=== PATIENT | male | born 1945 | race Caucasian/White ===

== ENCOUNTER 2019-06-26 08:42 | Outpatient (CLI) | payer MEDICARE, OTHER ==
[2019-06-26 09:02] LABS: BASOPHILS 0.4 % (0-2); EOSINOPHILS 4.6 % (0-7); HEMATOCRIT 48.4 % (42.0-54.0); HEMOGLOBIN 17.2 g/dL (13.5-17.5); IMMATURE GRANULOCYTES 0.4 % (0-5); LYMPHOCYTES 34.1 % (15-50); MCH 33.5 pg (26.0-34.0); MCHC 35.5 g/dL (31.0-37.0); MCV 94.2 fL (80.0-100.0); MEAN PLATELET VOLUME 12.2 fL (7.4-10.4); MONOCYTES 11.4 % (2-11); NEUTROPHILS 49.1 % (40-80); PLATELET COUNT 118 10x3/uL (130-400); RBC 5.14 10x6/uL (4.20-6.10); RDW 12.9 % (11.5-14.5); WBC 5.5 10x3/uL (4.8-10.8)
[2019-06-26 09:10] LABS: ANION GAP 9.7 mmol/L (8-16); CALCIUM 9.1 mg/dL (8.5-10.1); CARBON DIOXIDE 35.4 mmol/L (21.0-32.0); CREATININE - SERUM 1.1 mg/dL (0.6-1.3); POTASSIUM - SERUM 4.1 mmol/L (3.5-5.1)
[2019-06-26 09:11] LABS: INR 1.04 (0.85-1.17); PROTIME 13.1 SECONDS (11.6-15.0)
[2019-06-26] MEDS ORDERED: LOVASTATIN40 MG PO ×2 (11:12)
[2019-06-26] MEDS ORDERED: COZAAR50 MG (11:13)
[2019-06-26] MEDS ORDERED: HYDROCHLOROTH12.5 M1 PO (11:13)
[2019-06-26] MEDS ORDERED: NORVASC10 MG PO (11:14)
[2019-06-26] MEDS ORDERED: OMEPRAZOLE20 M1 PO (11:15)
[2019-06-26] MEDS ORDERED: BAYER CHEWABLE81 MG PO (11:15)
[2019-06-26] MEDS ORDERED: FISH OIL 1,0001 CA1 PO (11:16)
[2019-06-26] MEDS ORDERED: PRESERVISION (11:16)
--- NOTE | 2019-06-26 12:07 | NUR ---
CT DOWN. UNABLE TO DO PROCEDURE. IV REMOVED WITH CATHALON INTACT. DC'D HOME.
[2019-06-30 10:09] VITALS: BMI 28.3
== END 2019-06-26 11:30 | disposition home or self-care (01) ==
LOC: D.SP 08:42 → D.CT 11:00 → D.SP 11:30
PROVIDERS: Specialist; ATTEND Nurse Practitioner Family
DX: R91.8 Other nonspecific abnormal finding of lung field (principal); Z53.9 Procedure and treatment not carried out, unspecified reason

== ENCOUNTER 2019-06-30 06:00 | Inpatient (IN) | payer MEDICARE, OTHER ==
[~2019-06-30] VITALS: Ht 180.3 cm; Wt 92.3 kg
[~2019-06-30 06:00] MED LIST: BAYER CHEWABLE81 MG PO; COZAAR50 MG; FISH OIL 1,0001 CA1 PO; HYDROCHLOROTH12.5 M1 PO; LOVASTATIN40 MG PO; NORVASC10 MG PO; OMEPRAZOLE20 M1 PO; PRESERVISION
[2019-06-30 06:35] LABS: BASOPHILS 0.4 % (0-2); EOSINOPHILS 4.7 % (0-7); HEMATOCRIT 47.1 % (42.0-54.0); HEMOGLOBIN 16.5 g/dL (13.5-17.5); IMMATURE GRANULOCYTES 0.2 % (0-5); LYMPHOCYTES 30.3 % (15-50); MCH 32.6 pg (26.0-34.0); MCV 93.1 fL (80.0-100.0); MEAN PLATELET VOLUME 12.3 fL (7.4-10.4); MONOCYTES 8.6 % (2-11); NEUTROPHILS 55.8 % (40-80); PLATELET COUNT 120 10x3/uL (130-400); RBC 5.06 10x6/uL (4.20-6.10); RDW 12.8 % (11.5-14.5); WBC 4.9 10x3/uL (4.8-10.8)
[2019-06-30 06:38] LABS: INR 1.06 (0.85-1.17); PROTIME 13.3 SECONDS (11.6-15.0)
[2019-06-30 06:45] LABS: ANION GAP 10.2 mmol/L (8-16); CARBON DIOXIDE 32.6 mmol/L (21.0-32.0); CREATININE - SERUM 1.1 mg/dL (0.6-1.3); POTASSIUM - SERUM 3.8 mmol/L (3.5-5.1)
[2019-06-30] MEDS ORDERED: LIPITOR20 MG PO (06:54)
[2019-06-30 07:03] VITALS: BMI 28.3
--- NOTE | 2019-06-30 09:45 | NUR ---
RECEIVED TO ROOM 2236 VIA BED FROM IR. A/O X3. FAMILY AT BEDSIDE. CHEST TUBE TO LEFT CHEST IS PATENT. SET UP TO SUCTION. DENIES NEEDS.
--- NOTE | 2019-06-30 09:55 | NUR ---
REQUESTED AND GIVEN 4MG MORPHINE SLOW IVP FOR C/O PAIN TO LEFT CHEST LEVEL 8. WILL MONITOR. BREAKFAST TRAY ORDERED. FAMILY IN ROOM. NO NEEDS NOTED.
[2019-06-30 10:09] VITALS: BP 133/72; Ht 180.3 cm; Wt 92.3 kg
--- NOTE | 2019-06-30 10:45 | NUR ---
BREAKFAST TRAY SERVED IN ROOM. ATE ALL OF MEAL. REPORTS VERY LITTLE RELLIEF WITH USE OF MORPHINE.
--- NOTE | 2019-06-30 12:18 | NUR ---
RESTING QUIETLY IN BED. DENIES NEEDS.
--- NOTE | 2019-06-30 13:54 | NUR ---
REQUESTED AND GIVNE ONE HYDROCODONE PO FOR C/O LEFT CHEST PAIN. WILL MONITOR.
[2019-06-30 16:20] VITALS: BP 122/56
--- NOTE | 2019-06-30 18:20 | NUR ---
REQUESTED AND GIVNE 6MG MORPHINE SLOW IVP FOR C/O LEFT CHEST PAIN LEVEL 8. WILL MONITOR. DENIES NEEDS. NO CHANGES NOTED.
[2019-06-30 22:21] VITALS: BP 130/75
[2019-07-01 01:50] VITALS: BP 122/65
--- NOTE | 2019-07-01 04:00 | NUR ---
I have reviewed this patient and I concur with the Shift Assessment completed by the Licensed Practical Nurse today this shift.
[2019-07-01 04:58] VITALS: BP 134/60
--- NOTE | 2019-07-01 08:04 | NUR ---
ALERT AND ORIENTED. LUNGS CLEAR BILATERALLY. HEART SOUNDS S1 AND S2 HEARD IN ALL LOPE[place]. BOWEL SOUNDS ACTIVE X 4. STATES NO BM SINCE YESTERDAY. WILL CONTINUE TO MONITOR. CHEST TUBE TO LEFT SIDE. DENIES NEEDS. BED LOW. CALL RODRIGUEZ AND PERSONAL ITEMS IN REACH. WILL CONTINUE TO MONITOR.
[2019-07-01 09:03] VITALS: BP 128/74
--- NOTE | 2019-07-01 10:08 | NUR ---
SITTING IN BED EATING BREAKFAST BROUGHT. AT BEDSIDE. DENIES NEEDS. WILL CONTINUE TO MONITOR.
[2019-07-01 12:56] VITALS: BP 122/74
--- NOTE | 2019-07-01 15:02 | MORECARE ---
CASE MANAGEMENT DISCHARGE SUMMARY PATIENT: AUBREE LOPEZ UNIT: [id number] ADM DATE: 06/30/19 AGE: 73 : 45 SEX: M ROOM/BED: D.2236 AUTHOR: CECY,DOC PHYSICIAN: REFERRING PHYSICIAN: MEIR DAVIDSON MD DATE OF SERVICE: 07/01/19 Discharge Plan Patient Name: AUBREE LOPEZ Facility: [facility]:[place] : 1945 Planned Disposition: Home Anticipated Discharge Date: Discharge Date: Expected LOS: Initial Reviewer: [email or web address] Initial Review Date: 07/01/2019 Generated: 07/01/19 4:01 pm Comments DCP- Discharge Planning Updated by [email or web address]: Kya Jackson on 07/01/19 1:[address] Patient Name: AUBREE LOPEZ Admission Status: Elective Accout number: [id number] Admission Date: 06-30-2019 : 1945 Admission Diagnosis: Attending: MEIR DAVIDSON Current LOS: 1 Anticipated DC Date: Planned Disposition: Home Primary Insurance: MEDICARE A & B Discharge Planning Comments: CM met with patient to complete initial dc planning assessment. CM educated patient on the CM role and verbal consent given by patient to complete assessment. Patient lives at home with his . At discharge patient plans to return and feels this is a safe discharge. CM discussed availability of home health, rehab services, and medical equipment. Patient denied known discharge needs at this time. CM will continue to follow and will assist as needed with dc plans/needs. Grinder Set Up Operator Surface: Kya Jackson DCPIA - Discharge Planning Initial Assessment Updated by [email or web address]: Kya Jackson on 07/01/19 2:55 pm * Is the patient Alert and Oriented? Yes * How many steps to enter\exit or inside your home? 0/0 * PCP Dr. Crawley * Pharmacy [facility] on [address] * Preadmission Environment Home with Family * ADLs Independent * Equipment None * List name and contact numbers for known caregivers / representatives who currently or will assist patient after discharge: Umm Lopez - spouse - [phone] or [phone] * Verbal permission to speak to the caregivers and representatives has been obtained from the patient. Yes * Community resources currently utilized None * Additional services required to return to the preadmission environment? No * Can the patient safely return to the preadmission environment? Yes * Has this patient been hospitalized within the prior 30 days at any hospital? No Patient Name: AUBREE LOPEZ Page [id number] at 1502 All edits/amendments must be made on the electronic document DICTATION DATE: 07/01/191500 PLASTER LATHER: TOI 07/01/191500 RPT#: [id number] DC DATE: STATUS: ADM IN [facility] [address] [place] [address] END OF REPORT
--- NOTE | 2019-07-01 16:05 | NUR ---
RESTING IN BED. DENIES NEEDS. WILL CONTINUE TO MONITOR.
[2019-07-01 16:33] VITALS: BP 131/66
--- NOTE | 2019-07-01 16:45 | NUR ---
DISCHARGE EDUCATION PROVIDED BOTH WRITTEN AND VERBAL. VERBALIZED UNDERSTANDING. DENIES FURTHER QUESTIONS. IV REMOVED FROM LFA WITH TIP INTACT. PATIENT DISCHARGED HOME WITH WITH ALL BELONGINGS.
--- NOTE | 2019-07-02 10:50 | MORECARE ---
CASE MANAGEMENT DISCHARGE SUMMARY PATIENT: AUBREE LOPEZ UNIT: [id number] ADM DATE: 06/30/19 AGE: 73 : 45 SEX: M ROOM/BED: D.2236 AUTHOR: CECY,DOC PHYSICIAN: REFERRING PHYSICIAN: MEIR DAVIDSON MD DATE OF SERVICE: 07/02/19 Discharge Plan Patient Name: AUBREE LOPEZ Facility: [facility]:[place] : 1945 Planned Disposition: Home Anticipated Discharge Date: Discharge Date: 07/01/2019 Expected LOS: 0 Initial Reviewer: [email or web address] Initial Review Date: 07/01/2019 Generated: 07/02/19 11:49 am Comments DCP- Discharge Planning Updated by [email or web address]: Kya Jackson on 07/01/19 1:[address] Patient Name: AUBREE LOPEZ Admission Status: Elective Accout number: [id number] Admission Date: 06-30-2019 : 1945 Admission Diagnosis: Attending: MEIR DAVIDSON Current LOS: 1 Anticipated DC Date: Planned Disposition: Home Primary Insurance: MEDICARE A & B Discharge Planning Comments: CM met with patient to complete initial dc planning assessment. CM educated patient on the CM role and verbal consent given by patient to complete assessment. Patient lives at home with his . At discharge patient plans to return and feels this is a safe discharge. CM discussed availability of home health, rehab services, and medical equipment. Patient denied known discharge needs at this time. CM will continue to follow and will assist as needed with dc plans/needs. Supervisor Correspondence Section: Kya Jackson DCPIA - Discharge Planning Initial Assessment Updated by [email or web address]: Kya Jackson on 07/01/19 2:55 pm * Is the patient Alert and Oriented? Yes * How many steps to enter\exit or inside your home? 0/0 * PCP Dr. Crawley * Pharmacy [facility] on [address] * Preadmission Environment Home with Family * ADLs Independent * Equipment None * List name and contact numbers for known caregivers / representatives who currently or will assist patient after discharge: Umm Lopez - spouse - [phone] or [phone] * Verbal permission to speak to the caregivers and representatives has been obtained from the patient. Yes * Community resources currently utilized None * Additional services required to return to the preadmission environment? No * Can the patient safely return to the preadmission environment? Yes * Has this patient been hospitalized within the prior 30 days at any hospital? No Last DP export: 07/01/19 2:02 p Patient Name: AUBREE LOPEZ Page 11421 at 1050 All edits/amendments must be made on the electronic document DICTATION DATE: 07/02/191048 TERMINATION CLERK: DM 07/02/191048 RPT#: [id number] DC DATE:07/01/19 STATUS: DIS IN [facility] [address] [place] [address] END OF REPORT
== END 2019-07-01 16:50 | disposition home or self-care (01) | DRG 200 ==
LOC: D.SP 06:00 → D.MS 09:31 → D.SP 09:33 → D.MS 09:33
PROVIDERS: ADMIT Radiology Diagnostic Radiology; ATTEND Radiology Diagnostic Radiology
PROC: 0W9B30Z Drainage of Left Pleural Cavity with Drainage Device, Percutaneous Approach (ICD-10-PCS; 2019-06-30)
PROC: 0BBG3ZX Excision of Left Upper Lung Lobe, Percutaneous Approach, Diagnostic (ICD-10-PCS; principal; 2019-06-30 08:00)
DX: J95.811 Postprocedural pneumothorax (principal); C34.90 Malignant neoplasm of unspecified part of unspecified bronchus or lung; R91.1 Solitary pulmonary nodule; J43.9 Emphysema, unspecified

== ENCOUNTER → 2019-07-21 13:44 | Outpatient (CLI) | payer MEDICARE, OTHER ==
[2019-06-30 10:09] VITALS: BMI 28.3
[~2019-07-21 13:44] MED LIST changes: +LIPITOR20 MG PO
== END | disposition home or self-care (01) ==
LOC: D.RT 13:44
PROVIDERS: ATTEND Internal Medicine Medical Oncology
DX: C34.12 Malignant neoplasm of upper lobe, left bronchus or lung (principal)